=== PATIENT | male | born 1945 | race Caucasian/White ===

== ENCOUNTER 2019-07-21 09:47 | Emergency (ER) | payer MEDICARE ==
[~2019-07-21] VITALS: Ht 182.8 cm; Wt 100.0 kg
[~2019-07-21 09:47] MED LIST: ACHYD1T PO; ATEN50TA PO; CIPR-226 PO; HDR4T PO; NAPR-243 PO; NITR-33 PO; ONDA-42 PO; OXYC-272 PO; ROSU5TAB PO; TRIA1TAB5 PO
--- NOTE | 2019-07-21 10:41 | NUR ---
lab per left ac stick
[2019-07-21 10:44] LABS: BASOPHILS % (AUTO) 0 % (0-10); EOSINOPHILS # (AUTO) 0.1 10^3/uL (0.0-0.3); EOSINOPHILS % (AUTO) 2 % (0-10); HEMATOCRIT 46 % (40-54); HEMOGLOBIN 15.9 G/DL (13.3-17.7); LYMPHOCYTES # (AUTO) 1.3 X 10^3 (1.0-4.0); LYMPHOCYTES % (AUTO) 19 % (12-44); MEAN CORPUSCULAR HEMOGLOBIN 32 PG (25-34); MEAN CORPUSCULAR HGB CONC 34 G/DL (32-36); MEAN CORPUSCULAR VOLUME 94 FL (80-99); MEAN PLATELET VOLUME 10.2 FL (7.4-10.4); MONOCYTES # (AUTO) 0.5 X 10^3 (0.0-1.0); MONOCYTES % (AUTO) 8 % (0-12); NEUTROPHILS # (AUTO) 4.8 X 10^3 (1.8-7.8); NEUTROPHILS % (AUTO) 71 % (42-75); PLATELET COUNT 191 10^3/uL (130-400); RED CELL DISTRIBUTION WIDTH 13.1 % (10.0-14.5); WHITE BLOOD COUNT 6.8 10^3/uL (4.3-11.0)
[2019-07-21] MEDS ORDERED: SCOPOLAMINE 1.5 MG (TRANSDERM-SCOP) PATCH TD ONE (10:45)
[2019-07-21] MEDS ORDERED: MECLIZINE 25 MG (ANTIVERT) TAB PO ONE (10:45)
[2019-07-21 10:58] LABS: PROTHROMBIN TIME PATIENT 13.8 SEC (12.2-14.7)
--- NOTE | 2019-07-21 11:00 | ED General ---
General Chief Complaint: Dizziness/Syncope Stated Complaint: DIZZINESS/NAUSEA Nursing Triage Note: States that this morning while in bed he turned over and became very dizzy. States fif he turns his head a certain way he becomes dizzy and nauseated. States a few days ago he had an ear ache and has nightly sinus congestion. No fevers, vomiting, diarrhea Nursing Sepsis Screen: No Definite Risk Source of Information: Patient Exam Limitations: No Limitations History of Present Illness Date Seen by Provider: Jul 21, 2019 Time Seen by Provider: 10:25 Initial Comments PT ARRIVES VIA POV FROM HOME--HAD SOMEONE DRIVE HIM HERE. STATES HE ROLLED OVER IN BED WHEN HE WOKE UP, AND EVERYTHING STARTED SPINNING STATES WHEN HE LAYS STILL, HE IS NOT DIZZY, BUT IF HE TURNS HIS HEAD EITHER DIRECTION OR MOVES TOO FAST, EVERYTHING STARTS SPINNING HAS HAD MILD NAUSEA WITH IT. IS NOT NAUSEATED NOW NO VOMITING OR DIARRHEA NO HEADACHE NO VISION CHANGES NO CHEST PAIN NO SHORTNESS OF BREATH NO PALPITATIONS NO PARESTHESIAS OR MOTOR DEFICITS HAD RIGHT EAR PAIN A COUPLE OF DAYS AGO, BUT NONE SINCE HAS CHRONIC NIGHTLY SINUS CONGESTION NO FEVER HAD SAME THING MANY YEARS AGO, BUT NO PROBLEMS SINCE THEN PCP: [facility] Allergies and Home Medications Allergies Coded Allergies: No Known Drug Allergies (Unverified , 12/31/13) Home Medications Atenolol 50 Mg Tablet, 1 EACH PO DAILY, (Reported) Ciprofloxacin HCl 250 Mg Tablet, 250 MG PO BID TAKE ONE TAB BY MOUTH TWICE A DAY. USE ALL OF THIS MED PRESCRIBED. START THIS MEDICATION TOMORROW. Prescribed by: SABRINA CARABALLO on 01/14/14 0931 Hydromorphone Hcl 4 Mg Tab, 1-2 TAB PO q4-6hrs PRN for PAIN MAY TAKE 1 OR 2 TABS BY MOUTH EVERY 4 TO 6 HRS NEEDED FOR PAIN. Prescribed by: SABRINA CARABALLO on 01/14/14 0945 Meclizine HCl 25 Mg Tablet, 25-50 MG PO Q6H Prescribed by: DUNG MIANYA on 07/21/19 1123 Ondansetron 4 Mg Tab.rapdis, 4 MG PO Q4H Prescribed by: DUNG MINAYA on 07/21/19 1123 Ondansetron Hcl 4 Mg Tab, 1-2 TAB PO q4-6hrs PRN MAY TAKE 1 OR 2 TABS BY MOUTH EVERY 4 TO 6 HRS NEEDED FOR NAUSEA/VOMITING Prescribed by: SABRINA CARABALLO on 01/14/14 0945 Rosuvastatin Calcium 5 Mg Tablet, 1 EACH PO DAILY, (Reported) Scopolamine 1 Each Patch.td72, 1 EACH TD Q72 HOURS Prescribed by: DUNG MINAYA on 07/21/19 1123 Triamterene/Hydrochlorothiazid 1 Each Tablet, 0.5 EACH PO DAILY, (Reported) Patient Home Medication List Home Medication List Reviewed: Yes Review of Systems Review of Systems Constitutional: see HPI; No chills, No diaphoresis; dizziness; No fever, No malaise, No weakness EENTM: see HPI, ear pain, nose congestion Respiratory: no symptoms reported Cardiovascular: no symptoms reported Gastrointestinal: see HPI; No abdominal pain, No diarrhea; nausea; No vomiting Genitourinary: no symptoms reported Musculoskeletal: other (HAS CHRONIC GENERALIZED PAIN, ESPECIALLY NECK, BACK, SHOULDERS, FEET AND ANKLES) Skin: no symptoms reported Psychiatric/Neurological: See HPI (DIZZINESS); Denies Headache, Denies Numbness, Denies Paresthesia, Denies Seizure, Denies Tingling, Denies Weakness Past Rtjfwrc-Rfpwck-Krzeet Hx Patient Social History Alcohol Use: Denies Use Recreational Drug Use: No Smoking Status: Former Smoker Former Smoker, Quit: Jul 10, 1959 2nd Hand Smoke Exposure: No Recent Foreign Travel: No Contact w/Someone Who Travel: No Recent Infectious Disease Expo: No Physical Abuse: No Sexual Abuse: No Mistreated: No Fear: No Past Medical History Surgeries: Yes (RENAL STONES-LITHOTRIPSY;CYST ON BACK;COLONOSCOPY;LEFT URETEROSCOPY;TEETH) Renal Respiratory: No Cardiac: Yes High Cholesterol, Hypertension Neurological: No Genitourinary: Yes Kidney Stones Gastrointestinal: Yes Gastroesophageal Reflux, Hiatal Hernia Musculoskeletal: Yes Arthritis Endocrine: No HEENT: No Cancer: No Psychosocial: No Integumentary: No Blood Disorders: No Adverse Reaction/Blood Tranf: No Physical Exam Vital Signs Vital Signs - First Documented 07/21/19 10:11 Temp 36.4 Pulse 56 Resp 16 B/P (MAP) 136/96 (109) Pulse Ox 96 Capillary Refill : Less Than 3 Seconds Height, Weight, BMI Height: 6'0.00" Weight: 217lbs. oz. 98.543806dc; 29.00 BMI Method:Stated General Appearance: No Apparent Distress, WD/WN HEENT: PERRL/EOMI, TMs Normal, Normal ENT Inspection, Pharynx Normal, Moist Mucous Membranes, Other (EDENTULOUS. NO SINUS TENDERNES. HAS MILD POST NASAL DRAINAGE. ) Neck: Full Range of Motion, Normal Inspection, Non Tender, Supple; No Carotid Bruit, No JVD Respiratory: Normal Breath Sounds, No Accessory Muscle Use, No Respiratory Distress Cardiovascular: Regular Rate, Rhythm, No Edema, No Gallop, No JVD, No Murmur, Normal Peripheral Pulses Gastrointestinal: Normal Bowel Sounds, No Organomegaly, No Pulsatile Mass, Non Tender, Soft Back: No CVA Tenderness, No Vertebral Tenderness Extremity: Normal Capillary Refill, Normal Inspection, Normal Range of Motion, Non Tender, No Calf Tenderness, No Pedal Edema Neurologic/Psychiatric: Alert, Oriented x3, No Motor/Sensory Deficits, Normal Mood/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 ) Skin: Normal Color, Warm/Dry Progress/Results/Core Measures Suspected Sepsis Recent Fever Within 48 Hours: No Infection Criteria Present: None New/Unexplained Altered Menta: No Sepsis Screen: No Definite Risk SIRS Temperature: Pulse: 56 Respiratory Rate: 16 Laboratory Tests 07/21/19 10:36: White Blood Count 6.8 Blood Pressure 136 /96 Mean: 109 Laboratory Tests 07/21/19 10:36: Creatinine 0.92, INR Comment 1.0, Platelet Count 191, Total Bilirubin 0.7 Results/Orders Lab Results Laboratory Tests Test 07/21/19 10:36 Range/Units White Blood Count 6.8 4.3-11.0 10^3/uL Red Blood Count 4.95 4.35-5.85 10^6/uL Hemoglobin 15.9 13.3-17.7 G/DL Hematocrit 46 40-54 % Mean Corpuscular Volume 94 80-99 FL Mean Corpuscular Hemoglobin 32 25-34 PG Mean Corpuscular Hemoglobin Concent 34 32-36 G/DL Red Cell Distribution Width 13.1 10.0-14.5 % Platelet Count 191 130-400 10^3/uL Mean Platelet Volume 10.2 7.4-10.4 FL Neutrophils (%) (Auto) 71 42-75 % Lymphocytes (%) (Auto) 19 12-44 % Monocytes (%) (Auto) 8 0-12 % Eosinophils (%) (Auto) 2 0-10 % Basophils (%) (Auto) 0 0-10 % Neutrophils # (Auto) 4.8 1.8-7.8 X 10^3 Lymphocytes # (Auto) 1.3 1.0-4.0 X 10^3 Monocytes # (Auto) 0.5 0.0-1.0 X 10^3 Eosinophils # (Auto) 0.1 0.0-0.3 10^3/uL Basophils # (Auto) 0.0 0.0-0.1 10^3/uL Prothrombin Time 13.8 12.2-14.7 SEC INR Comment 1.0 0.8-1.4 Activated Partial Thromboplast Time 29 24-35 SEC Sodium Level 140 135-145 MMOL/L Potassium Level 3.9 3.6-5.0 MMOL/L Chloride Level 108 H 98-107 MMOL/L Carbon Dioxide Level 22 21-32 MMOL/L Anion Gap 10 5-14 MMOL/L Blood Urea Nitrogen 19 H 7-18 MG/DL Creatinine 0.92 0.60-1.30 MG/DL Estimat Glomerular Filtration Rate > 60 BUN/Creatinine Ratio 21 Glucose Level 128 H 70-105 MG/DL Calcium Level 10.2 H 8.5-10.1 MG/DL Corrected Calcium 10.0 8.5-10.1 MG/DL Magnesium Level 2.0 1.6-2.4 MG/DL Total Bilirubin 0.7 0.1-1.0 MG/DL Aspartate Amino Transf (AST/SGOT) 18 5-34 U/L Alanine Aminotransferase (ALT/SGPT) 26 0-55 U/L Alkaline Phosphatase 49 40-136 U/L Total Protein 6.9 6.4-8.2 GM/DL Albumin 4.3 3.2-4.5 GM/DL TSH [place] Testing 1.61 0.35-4.94 UIU/ML My Orders Orders - DUNG MINAYA DO Scopolamine Patch (Transderm-Scop Patch) (07/21/19 10:45) Meclizine Tablet (Antivert Tablet) (07/21/19 10:45) Ekg Tracing (07/21/19 10:33) Monitor-Rhythm Ecg Trace Only (07/21/19 10:33) Ct Head Wo-R/O Stroke (07/21/19 10:33) Chest 1 View, Ap/Pa Only (07/21/19 10:33) Cbc With Automated Diff (07/21/19 10:33) Comprehensive Metabolic Panel (07/21/19 10:33) Magnesium (07/21/19 10:33) Protime With Inr (07/21/19 10:33) Partial Thromboplastin Time (07/21/19 10:33) Thyroid Analyzer (07/21/19 10:33) Medications Given in ED Current Medications Medications Dose Ordered Sig/Jeanine Route Start Time Stop Time Status Last Admin Dose Admin Meclizine HCl 50 mg ONCE ONCE PO 07/21/19 10:45 07/21/19 10:46 DC 07/21/19 10:45 50 MG Scopolamine 1.5 mg ONCE ONCE TD 07/21/19 10:45 07/21/19 10:46 DC 07/21/19 10:45 1.5 MG Vital Signs/I&O 07/21/19 10:11 Temp 36.4 Pulse 56 Resp 16 B/P (MAP) 136/96 (109) Pulse Ox 96 Capillary Refill : Less Than 3 Seconds Blood Pressure Mean: 109 ECG Initial ECG Impression Date: Jul 21, 2019 Initial ECG Impression Time: 10:39 Initial ECG Rate: 51 Initial ECG Rhythm: Normal Sinus Initial ECG Impression: Normal Diagnostic Imaging Comments CT HEAD--NO ACUTE PROCESS, PER RADIOLOGIST REPORT AT 1122 CXR--NO ACUTE PROCESS, PER RADIOLOGIST REPORT AT 1147 Reviewed: Reviewed by Me Departure Impression Primary Impression: Vertigo Disposition: 01 HOME, SELF-CARE Condition: Stable Departure-Patient Inst. Referrals: CANDELARIO RAMOS MD (PCP/Family) Primary Care Physician Patient Instructions: Vertigo (a Type of Dizziness) (DC) Add. Discharge Instructions: SLOW POSITION CHANGES NO DRIVING IF YOU ARE DIZZY FOLLOW UP WITH DR. RAMOS THIS WEEK FOR FURTHER CARE, RETURN TO ER IF WORSE All discharge instructions reviewed with patient and/or family. Voiced understanding. Scripts Meclizine HCl (Meclizine HCl) 25 Mg Tablet 25-50 MG PO Q6H for Dizziness, #30 TAB Prov: DUNG MINAYA DO 07/21/19 Ondansetron (Ondansetron Odt) 4 Mg Tab.rapdis 4 MG PO Q4H for Nausea/Vomiting, #10 TAB Prov: DUNG MINAYA DO 07/21/19 Scopolamine (Transderm-Scop) 1 Each Patch.td72 1 EACH TD Q72 HOURS for Dizziness, #3 PATCH Prov: DUNG MINAYA DO 07/21/19 DUNG MINAYA DO Jul 21, 2019 11:00
[2019-07-21 11:05] LABS: ALANINE AMINOTRANSFERASE 26 U/L (0-55); ALBUMIN 4.3 GM/DL (3.2-4.5); ALKALINE PHOSPHATASE 49 U/L (40-136); BILIRUBIN,TOTAL 0.7 MG/DL (0.1-1.0); BUN/CREATININE RATIO 21; CALCIUM 10.2 MG/DL (8.5-10.1); CARBON DIOXIDE 22 MMOL/L (21-32); CHLORIDE 108 MMOL/L (98-107); CREATININE SERUM 0.92 MG/DL (0.60-1.30); GFR ESTIMATED > 60; GLUCOSE 128 MG/DL (70-105); POTASSIUM 3.9 MMOL/L (3.6-5.0); SODIUM 140 MMOL/L (135-145); TOTAL PROTEIN 6.9 GM/DL (6.4-8.2)
--- NOTE | 2019-07-21 11:07 | Diagnostic Imaging Report ---
PROCEDURE: CT head wo r/o stroke. TECHNIQUE: Multiple contiguous axial images were obtained through the brain without the use of intravenous contrast. Auto Exposure Controls were utilized during the CT exam to meet ALARA standards for radiation dose reduction. INDICATION: Dizziness. COMPARISON: None. FINDINGS: No intracranial hemorrhage, mass effect, hydrocephalus or extra-axial fluid collections. No CT evidence for territorial infarction. Osseous structures are intact. The visualized paranasal sinuses and mastoids are clear. IMPRESSION: No acute intracranial CT findings. Dictated by: Dictated on workstation # [id number]
[2019-07-21] MEDS ORDERED: MECL-106 PO (11:23)
[2019-07-21] MEDS ORDERED: SCOP1PAT11 TD (11:23)
[2019-07-21] MEDS ORDERED: ONDA4TAB11 PO (11:23)
[2019-07-21 11:25] LABS: TSH (THYROID ANALYZER) 1.61 UIU/ML (0.35-4.94)
--- NOTE | 2019-07-21 11:27 | Diagnostic Imaging Report ---
EXAMINATION: Chest radiograph, portable AP view. DATE: 07/21/2019 11:06 AM hours. INDICATION: 73-year-old male, dizziness. COMPARISON: CT chest January 07, 2014. FINDINGS: Heart size and mediastinal contours are unremarkable. There is no identified pneumothorax. There is no large pleural effusion. There is no identified focal airspace consolidation. IMPRESSION: No identified acute cardiopulmonary abnormality. Dictated by: Dictated on workstation # [id number]
[2019-07-21 12:37] VITALS: BP 131/94
== END 2019-07-21 12:03 | disposition home or self-care (01) ==
LOC: EDUNIT# 09:47 → ER 09:48
DX: R42 Dizziness and giddiness (principal); I10 Essential (primary) hypertension; E78.00 Pure hypercholesterolemia, unspecified; K21.9 Gastro-esophageal reflux disease without esophagitis; Z87.891 Personal history of nicotine dependence; Z87.442 Personal history of urinary calculi
CPT/HCPCS: 36415; 70450; 71045; 80053; 83735; 84443; 85025; 85610; 85730; 93005

== ENCOUNTER → 2019-12-10 | Outpatient (CLI) | payer MEDICARE ==
[~2019-12-10] MED LIST changes: +MECL-149 PO; +ONDA4TAB11 PO; +SCOP1PAT11 TD
--- NOTE | 2019-12-10 09:03 | Diagnostic Imaging Report ---
Right shoulder at 8:38. Indication: Shoulder pain 3 views were obtained. There are no prior right shoulder examinations available for comparison. There is no fracture, dislocation or acute bony abnormality evident. There is mild degenerative disease of the glenohumeral joint and the acromioclavicular joint. The degenerative changes seem similar to the prior chest exam of 07/21/2019. The soft tissues are unremarkable. Impression: 1. There is no evidence for an acute bony abnormality. 2. There is mild degenerative disease involving the shoulder joint. However if there is clinical concern regarding injury to the rotator cuff or labrum, then MRI would be recommended for further study. Dictated by: Dictated on workstation # [id number]
== END ==
LOC: RAD FS 08:27
PROVIDERS: ATTEND Nurse Practitioner
DX: M19.011 Primary osteoarthritis, right shoulder (principal)
CPT/HCPCS: 73030

== ENCOUNTER → 2019-12-16 | Outpatient (CLI) | payer MEDICARE ==
--- NOTE | 2019-12-16 16:18 | Diagnostic Imaging Report ---
PROCEDURE: MRI right joint upper extremity without contrast. TECHNIQUE: Multiplanar, multisequence non contrast-enhanced MRI of the right upper extremity was accomplished. INDICATION: Pain in the right shoulder. Injury seven months ago. COMPARISON: Radiograph from 12/10/2019. FINDINGS: No acute fracture or dislocation is seen in the right shoulder. Prominent cystlike changes are seen in the lateral humeral head, likely degenerative. No joint effusion is seen. There is an os acromiale. Marked degenerative changes are seen in the acromioclavicular joint. No joint effusion is seen. The supraspinatus and infraspinatus tendons demonstrate moderate tendinosis with no high-grade partial-thickness or full-thickness tears. Low-grade partial-thickness intrasubstance tearing is seen in the infraspinatus and subscapularis tendons. The teres minor tendon appears intact. The long head of the biceps tendon is not well seen in the bicipital groove, and appears to be completely torn. The glenoid labrum is suboptimally evaluated without intra-articular contrast, however there does appear to be degeneration of the labrum and irregular tearing with no para labral cysts seen. The acromion has a curved undersurface without significant hooking. The coracoclavicular and coracoacromial ligaments are intact. Soft tissues about the right shoulder are otherwise unremarkable. IMPRESSION: 1. Moderate tendinosis and low-grade partial-thickness tearing in the right rotator cuff, with no high-grade partial-thickness or full-thickness tear seen. 2. The long head of the biceps tendon appears completely torn. 3. 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 Dictated by: Dictated on workstation # [id number]
== END ==
LOC: RAD 13:44
PROVIDERS: ATTEND Nurse Practitioner
DX: M75.121 Complete rotator cuff tear or rupture of right shoulder, not specified as traumatic (principal); M19.011 Primary osteoarthritis, right shoulder
CPT/HCPCS: 73221

== ENCOUNTER → 2020-04-30 | Outpatient (CLI) | payer MEDICARE ==
--- NOTE | 2020-04-30 09:20 | Diagnostic Imaging Report ---
INDICATION: Left foot pain AP, oblique, and lateral views of the left foot are obtained. There is plantar calcaneal spurring. There is no acute fracture or acute bony abnormality. Joint spaces appear grossly unremarkable. IMPRESSION: No acute fracture or acute bony abnormality. There is some plantar calcaneal spurring. Dictated by: Dictated on workstation # [id number]
== END ==
LOC: RAD FS 08:36
PROVIDERS: ATTEND Nurse Practitioner
DX: M77.32 Calcaneal spur, left foot (principal)
CPT/HCPCS: 73630

== ENCOUNTER → 2021-06-10 | Outpatient (CLI) | payer MEDICARE ==
[~2021-06-10] MED LIST changes: +SCOP1PAT10 TD; -SCOP1PAT11 TD
--- NOTE | 2021-06-10 10:05 | Diagnostic Imaging Report ---
INDICATION: Chronic left ankle pain. FINDINGS: 3 views. No fractures or dislocations. The articulating surfaces are smooth. Joint spaces are well-maintained. There is minimal lucency along the medial corner of the tibial dome articulating surface. No loose bodies. IMPRESSION: Subcortical lucency along the medial corner of the articulating surface of the talus suggesting mild osteochondral defect. Dictated by: Dictated on workstation # [id number]
== END ==
LOC: RAD FS 09:35
PROVIDERS: ATTEND Nurse Practitioner
DX: M25.572 Pain in left ankle and joints of left foot (principal)
CPT/HCPCS: 73610

== ENCOUNTER → 2021-07-22 | Outpatient (CLI) | payer MEDICARE | LOC: CARD 11:30 | PROVIDERS: ATTEND Internal Medicine Cardiovascular Disease | DX: I11.9 Hypertensive heart disease without heart failure (principal) | CPT/HCPCS: 93306 ==

== ENCOUNTER → 2022-11-03 | Outpatient (CLI) | payer MEDICARE ==
--- NOTE | 2022-11-03 08:07 | Diagnostic Imaging Report ---
PROCEDURE: CT sinuses without contrast TECHNIQUE: Multiple contiguous axial images were obtained through the sinuses without the use of intravenous contrast. Coronal and sagittal reformations were then performed. Auto Exposure Controls were utilized during the CT exam to meet ALARA standards for radiation dose reduction. INDICATION: Chronic sinusitis There is leftward deviation and spurring of the nasal septum. Paranasal sinuses are clear, bilaterally. There is no evidence of air-fluid level or significant mural thickening. Mastoid air cells and middle ear cavities are also clear. There is mild atherosclerotic calcification within distal internal carotid arteries. There is punctate calcification along the posterior inferior aspect of adenoidal tissue in the midline. Moderate degenerative findings are seen at the C1-C2 level. IMPRESSION: There is leftward deviation of nasal septum with patency of osteomeatal complexes. No acute sinusitis or significant inflammation is seen. There is focal probable dystrophic calcification or other radiopaque substance in the adenoidal tissue. Clinical correlation would be useful. Dictated by: Dictated on workstation # [id number]
== END ==
LOC: RAD FS 07:32
PROVIDERS: ATTEND Otolaryngology Otolaryngology/Facial Plastic Surgery
DX: J32.9 Chronic sinusitis, unspecified (principal); J34.2 Deviated nasal septum
CPT/HCPCS: 70486

== ENCOUNTER 2022-12-29 05:26 | Outpatient (CLI) | payer MEDICARE ==
[~2022-12-29] VITALS: Ht 183 cm; Wt 99.0 kg
[2022-12-29] MEDS ORDERED: ATOR40TA70 PO (12:53)
== END 2022-12-29 13:04 | disposition home or self-care (01) ==
LOC: PREOP 05:26
PROVIDERS: ATTEND Otolaryngology Otolaryngology/Facial Plastic Surgery
DX: Z01.818 Encounter for other preprocedural examination (principal)

== ENCOUNTER 2023-01-06 06:22 | Day surgery (SDC) | payer MEDICARE ==
[2023-01-06] VITALS (9 sets, daily range): BP systolic 110–142; BP diastolic 70–95
[~2023-01-06] VITALS: Ht 183 cm; Wt 99.0 kg
[~2023-01-06 06:22] MED LIST changes: +ATOR40TA70 PO
[2023-01-06 06:57] LABS: BASOPHILS # (AUTO) 0.1 10^3/uL (0.0-0.1); BASOPHILS % (AUTO) 1 % (0-10); EOSINOPHILS # (AUTO) 0.2 10^3/uL (0.0-0.3); EOSINOPHILS % (AUTO) 2 % (0-10); HEMATOCRIT 45 % (40-54); HEMOGLOBIN 15.9 g/dL (13.3-17.7); LYMPHOCYTES # (AUTO) 3.3 10^3/uL (1.0-4.0); LYMPHOCYTES % (AUTO) 42 % (12-44); MEAN CORPUSCULAR HEMOGLOBIN 32 pg (25-34); MEAN CORPUSCULAR HGB CONC 35 g/dL (32-36); MEAN CORPUSCULAR VOLUME 93 fL (80-99); MEAN PLATELET VOLUME 9.6 fL (9.0-12.2); MONOCYTES # (AUTO) 0.6 10^3/uL (0.0-1.0); MONOCYTES % (AUTO) 8 % (0-12); NEUTROPHILS # (AUTO) 3.6 10^3/uL (1.8-7.8); NEUTROPHILS % (AUTO) 46 % (42-75); PLATELET COUNT 227 10^3/uL (130-400); WHITE BLOOD COUNT 7.7 10^3/uL (4.3-11.0)
--- NOTE | 2023-01-06 07:05 | Progress Note-Pre Operative ---
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
--- NOTE | 2023-01-06 07:06 | Progress Note-Post Operative ---
Post-Operative Progess Note Surgeon (s)/Chancellor (s) Surgeon RUTHIE MCKEON MD Chancellor n/a Pre-Operative Diagnosis Bialt Hyper of INferior Turbinates, Nasopharyngeal Mass Post-Operative Diagnosis same Post-Op Procedure Note Date of Procedure: Jan 06, 2023 Name of Procedure Performed: Bilat Partial Reduction of the INferior Turbinates, Nasopharyngeal Biopsy Description & Findings Description and Findings: n/a Anesthesia Type GET Estimated Blood Loss minimal Packing none. Specimen(s) collected/removed nasopharyngeal biopsy to pathology RUTHIE MCKEON MD Jan 06, 2023 07:06
[2023-01-06 07:08] LABS: POTASSIUM 3.2 MMOL/L (3.6-5.0)
[2023-01-06 07:09] LABS: CALCIUM 10.1 MG/DL (8.5-10.1)
[2023-01-06 07:13] LABS: CREATININE SERUM 0.94 MG/DL (0.60-1.30)
[2023-01-06] MEDS ORDERED: PROMETHAZINE INJ 25 MG/ML (PHENERGAN) AMP IVP PRN (07:15)
[2023-01-06] MEDS ORDERED: HYDROcodone/APAP 5 MG/325 MG (LORTAB) TAB PO PRN (07:15)
[2023-01-06] MEDS ORDERED: D5 1/2 NS W/KCL 20 MEQ/L 1,000 ML IV SCH (07:15)
[2023-01-06] MEDS ORDERED: PHENYLEPHRINE 0.5% NASAL SPR (NEO-SYNEPHRINE) REG ONE (07:18)
[2023-01-06] MEDS ORDERED: LIDOCAINE/EPI 1%-1:100,000 (XYLOCAINE) 20ML ONE (07:18)
[2023-01-06] MEDS ORDERED: SUCCINYLCHOLINE INJ 20 MG/1 ML 10 ML VIAL ONE (07:19)
[2023-01-06] MEDS ORDERED: proPOfol 200 MG/20 ML (DIPRIVAN) VIAL IV ONE (07:19)
[2023-01-06] MEDS ORDERED: ROCURONIUM 50 MG/5 ML (ZEMURON) VIAL IV ONE (07:19)
[2023-01-06] MEDS ORDERED: ONDANSETRON 4 MG/2 ML (SDV) Z0FRAN ONE (07:19)
[2023-01-06] MEDS ORDERED: fentaNYL INJ 100 MCG/2 ML AMP ONE (07:19)
[2023-01-06] MEDS ORDERED: MIDAZOLAM 2 MG/2 ML (VERSED) VIAL ONE (07:19)
[2023-01-06] MEDS ORDERED: LIDOCAINE PF 2% 5 ML (XYLOCAINE) VIAL ONE (07:19)
[2023-01-06] MEDS ORDERED: SEVOFLURANE (ULTANE) 15 ML INHAL SOLN ONE (08:04)
[2023-01-06] MEDS ORDERED: NEOSTIGMINE (BLOXIVERZ ) 1 MG/1ML 10 ML VIAL ONE (08:05)
[2023-01-06] MEDS ORDERED: GLYCOPYRROLATE 0.2 MG/ML (ROBINUL) 2 ML VIAL ONE (08:05)
--- NOTE | 2023-01-06 08:21 | Anesthesia-General Post-Op ---
General Patient Condition Mental Status/LOC: Same as Preop Cardiovascular: Satisfactory Nausea/Vomiting: Absent Respiratory: Satisfactory Pain: Controlled Complications: Absent Post Op Complications Complications None Follow Up Care/Instructions Patient Instructions None needed. Anesthesia/Patient Condition Patient Condition Patient is doing well, no complaints, stable vital signs, no apparent adverse anesthesia problems. No complications reported per nursing. PORFIRIO YOO CRNA Jan 06, 2023 08:21
[2023-01-06] MEDS ORDERED: ONDANSETRON 4 MG/2 ML (SDV) Z0FRAN IVP PRN (08:30)
[2023-01-06] MEDS ORDERED: morphine INJ 10 MG/ML 1ML (SYR OR VIAL) IVP ONE (08:30)
== END 2023-01-06 09:55 | disposition home or self-care (01) ==
LOC: SDC 06:22
PROVIDERS: ATTEND Otolaryngology Otolaryngology/Facial Plastic Surgery
DX: J34.3 Hypertrophy of nasal turbinates (principal); J39.2 Other diseases of pharynx; E66.9 Obesity, unspecified; Z68.30 Body mass index [BMI] 30.0-30.9, adult
CPT/HCPCS: 36415; 80048; 85025; 87081; 93005